=== PATIENT | female | born 1980 | race Caucasian/White ===

== ENCOUNTER 2016-12-02 17:29 | Emergency (ER) | payer MEDICAID, OTHER ==
[2016-12-02] MEDS ORDERED: ASPIRIN 81 MG TABLET, CHEWABLE PO ONE (17:52)
--- NOTE | 2016-12-02 17:54 | ER Document Report ---
ED Medical Screen (RME) - General Stated Complaint: BLOOD PRESSURE PROBLEM Notes: Patient states she has not been feeling well on an off for couple weeks. Chest pain started today about 1:00 and she was seen at an urgent care who called EMS. Her blood pressure was also elevated which is another reason why she went to the urgent care. Patient is having some shortness of breath. No fever. Nitroglycerin given for chest pain helped some but also gave her a headache. Patient has had a hysterectomy. I have greeted and performed a rapid initial assessment of this patient. A comprehensive ED assessment and evaluation of the patient, analysis of test results and completion of the medical decision making process will be conducted by additional ED providers. TRAVEL OUTSIDE OF THE [place] IN LAST 30 DAYS: No - Related Data Allergies/Adverse Reactions: hydrocodone bitartrate [From Vicodin] Allergy (Verified 12/02/16 17:49) Penicillins Allergy (Verified 12/02/16 17:49) Past Medical History GI Medical History: Reports: Hx Gastroesophageal Reflux Disease Past Surgical History: Reports: Hx Hysterectomy, Hx Orthopedic Surgery - rt ankle - Immunizations Hx Diphtheria, Pertussis, Tetanus Vaccination: Yes Physical Exam - Cardiovascular Rhythm: Regular Heart sounds: Normal auscultation
[2016-12-02 18:30] LABS: ABSOLUTE EOSINOPHILS # (AUTO) 0.2 10^3/uL (0.0-0.6); ABSOLUTE MONOCYTES (AUTO) 0.4 10^3/uL (0.1-1.4); ABSOLUTE NEUT (AUTO) 5.1 10^3/uL (1.7-8.2); BASOPHILS % (AUTO) 0.5 % (0-2); HEMATOCRIT 42.3 % (36.0-47.0); HEMOGLOBIN 14.5 g/dL (12.0-15.5); HGB HCT DIFFERENCE 1.2; LYMPHOCYTES % (AUTO) 26.3 % (13-45); MEAN CORPUSCULAR HEMOGLOBIN 31.3 pg (27.0-33.4); MEAN CORPUSCULAR HGB CONC 34.4 g/dL (32.0-36.0); MEAN CORPUSCULAR VOLUME 91 fl (80-97); MONOCYTES % (AUTO) 5.7 % (3-13); RED BLOOD COUNT 4.65 10^6/uL (3.72-5.28); RED CELL DISTRIBUTION WIDTH 13.3 % (11.5-14.0); SEGMENTED NEUTROPHILS % (AUTO) 65.5 % (42-78); WHITE BLOOD COUNT 7.7 10^3/uL (4.0-10.5)
[2016-12-02 18:38] LABS: PROTHROMBIN TIME 13.2 SEC (11.4-15.4)
[2016-12-02 18:51] LABS: BLOOD UREA NITROGEN 12 mg/dL (7-20); CALCIUM 8.8 mg/dL (8.4-10.2); CHLORIDE 104 mmol/L (98-107); CREATININE RESULT 0.88 mg/dL (0.52-1.25); GLUCOSE 85 mg/dL (75-110); POTASSIUM 4.2 mmol/L (3.6-5.0)
[2016-12-02 18:52] LABS: ALANINE AMINOTRANSFERASE 105 U/L (9-52); ALBUMIN 3.9 g/dL (3.5-5.0); ALKALINE PHOSPHATASE 78 U/L (38-126); ANION GAP 13 (5-19); ASPARTATE AMINO TRANSFERASE 77 U/L (14-36); BILIRUBIN,DIRECT 0.3 mg/dL (0.0-0.4); BILIRUBIN,TOTAL 0.5 mg/dL (0.2-1.3); CARBON DIOXIDE 25 mmol/L (22-30); CREATINE KINASE 164 U/L (30-135); LIPASE 157.1 U/L (23-300); MAGNESIUM 1.8 mg/dL (1.6-2.3); SODIUM 141.9 mmol/L (137-145); TOTAL PROTEIN 7.1 g/dL (6.3-8.2)
[2016-12-02 18:53] LABS: D-DIMER < 0.27 ug/mL (0.00-0.50)
[2016-12-02 19:16] LABS: CREATINE KINASE MB 1.75 ng/mL (<4.55); TROPONIN I < 0.012 ng/mL
[2016-12-02] MEDS ORDERED: KETOROLAC TROMETHAMINE INJ/PF 30 MG/1 ML SDV IV ONE (20:00)
--- NOTE | 2016-12-02 20:01 | ER Document Report ---
ED General - General Chief Complaint: Chest Pain Stated Complaint: BLOOD PRESSURE PROBLEM TRAVEL OUTSIDE OF THE [place] IN LAST 30 DAYS: No - HPI Patient complains to provider of: chest pain pressure elevated blood pressure Notes: Patient coming in for evaluation of chest pressure and elevated blood pressure. States that she was at her work and travel with a pressure in chest her blood pressure was taken was read as high patient was encouraged to go to local urgent care ongoing local urgent care had her vital signs retaken again Tylenol high therefore EMS was called patient's transport to the ER. Patient was given nitroglycerin by the EMS with no improvement of her pain. Patient states pain upon movement patient denies any fevers chills nausea vomiting. Patient states few days ago did have a few bouts of diarrhea. No recent travel. Patient is resting currently upon my evaluation. - Related Data Allergies/Adverse Reactions: hydrocodone bitartrate [From Vicodin] Allergy (Verified 12/02/16 17:49) Penicillins Allergy (Verified 12/02/16 17:49) Past Medical History - Social History Smoking Status: Never Smoker Chew tobacco use (# tins/day): No Frequency of alcohol use: Occasional Drug Abuse: None Family History: Reviewed & Not Pertinent Patient has suicidal ideation: No Patient has homicidal ideation: No Renal/ Medical History: Denies: Hx Peritoneal Dialysis GI Medical History: Reports: Hx Gastroesophageal Reflux Disease Past Surgical History: Reports: Hx Hysterectomy, Hx Orthopedic Surgery - rt ankle - Immunizations Hx Diphtheria, Pertussis, Tetanus Vaccination: Yes Review of Systems - Review of Systems Constitutional: No symptoms reported EENT: No symptoms reported Cardiovascular: Chest pain Respiratory: No symptoms reported Gastrointestinal: No symptoms reported Genitourinary: No symptoms reported Female Genitourinary: No symptoms reported Musculoskeletal: No symptoms reported Skin: No symptoms reported Hematologic/Lymphatic: No symptoms reported Neurological/Psychological: No symptoms reported -: Yes All other systems reviewed and negative Physical Exam - Vital signs Vitals: Resp Pulse Ox 12 99 12/02/16 18:17 12/02/16 18:17 Interpretation: Normal - General General appearance: Appears well, Alert - HEENT Head: Normocephalic, Atraumatic Eyes: Normal Pupils: PERRL - Respiratory Respiratory status: No respiratory distress Chest status: Tender - Tenderness to palpation of the chest reproduces patient' s pain Breath sounds: Normal Chest palpation: Normal - Cardiovascular Rhythm: Regular Heart sounds: Normal auscultation Murmur: No - Abdominal Inspection: Normal Distension: No distension Bowel sounds: Normal Tenderness: Nontender Organomegaly: No organomegaly - Back Back: Normal, Nontender - Extremities General upper extremity: Normal inspection, Nontender, Normal color, Normal ROM , Normal temperature General lower extremity: Normal inspection, Nontender, Normal color, Normal ROM , Normal temperature, Normal weight bearing. No: Bry's sign - Neurological Neuro grossly intact: Yes Cognition: Normal Orientation: AAOx4 Dianna Coma Scale Eye Opening: Spontaneous Dianna Coma Scale Verbal: Oriented Dianna Coma Scale Motor: Obeys Commands Crescent Coma Scale Total: 15 Speech: Normal Motor strength normal: LUE, RUE, LLE, RLE Sensory: Normal - Psychological Associated symptoms: Normal affect, Normal mood - Skin Skin Temperature: Warm Skin Moisture: Dry Skin Color: Normal Course - Re-evaluation Re-evalutation: 12/02/16 22:21 The patient has atypical chest pain as the patient's chest pain is not suggestive of pulmonary embolus, cardiac ischemia, aortic dissection, or other serious etiology. Given the extremely low risk of these diagnoses further testing and evaluation for these possibilities does not appear to be indicated at this time. The patient has been instructed to return if the symptoms worsen or change in any way. - Vital Signs Vital signs: Temp Pulse Resp BP Pulse Ox 98.4 F 18 111/68 97 12/02/16 20:38 12/02/16 20:38 12/02/16 20:38 12/02/16 20:38 - Laboratory Result Diagrams: 12/02/16 18:10 12/02/16 18:10 Laboratory results interpreted by me: 12/02/16 18:10 AST 77 H ALT 105 H Creatine Kinase 164 H Discharge - Discharge Clinical Impression: Chest pressure, Chest wall pain Condition: Good Disposition: HOME, SELF-CARE Instructions: Chest Wall Pain ([facility]), Chest Pain of Unclear Cause ([facility]) Additional Instructions: Your laboratory studies not show any critical etiology for your chest pressure today more likely you are experiencing some chest wall pain. His can be due to inflammation in the cartilage and chest wall muscles I would highly recommend taking Motrin for your pain. Also make sure that you drink plenty of water to stay hydrated. Return to the ER symptoms worsen. Follow-up with your primary care physician. Your blood pressure has been within normal limits here in the ER I recommend following up with your primary care physician for further monitoring Forms: Return to Work
[2016-12-02 20:42] VITALS: BP 111/68
--- NOTE | 2016-12-02 22:02 | EKG REPORT ---
SEVERITY:- BORDERLINE ECG - SINUS RHYTHM LVH BY VOLTAGE : Confirmed by: Doris Cotton 02-Dec-2016 22:01:54
== END 2016-12-02 20:54 | disposition home or self-care (01) ==
LOC: ER 17:29
DX: R07.9 Chest pain, unspecified (principal); R07.89 Other chest pain; I10 Essential (primary) hypertension
CPT/HCPCS: 93005; 99285; 96374; 36415; 82553; 82550; 83690; 83735; 85025; 85610; 80053; 84484; 85379; 71010; 93010; J1885

== ENCOUNTER 2017-02-05 23:25 | Emergency (ER) | payer MEDICAID ==
--- NOTE | 2017-02-06 02:21 | RADIOLOGY REPORT (SQ) ---
EXAM DESCRIPTION: FOOT LEFT COMPLETE COMPLETED DATE/TIME: 02/06/2017 2:08 am REASON FOR STUDY: left foot pain with hx fracture COMPARISON: CR left ankle 01/03/2015. NUMBER OF VIEWS: Three views. TECHNIQUE: AP, lateral and oblique radiographic images acquired of the left foot. LIMITATIONS: None. FINDINGS: MINERALIZATION: Normal. BONES: No acute fracture or dislocation. No worrisome bone lesions. Small calcaneal enthesophytes. JOINTS: No effusions. SOFT TISSUES: No soft tissue swelling. No foreign body. OTHER: Screw fixation of the distal tibia. 0.3 cm chronic avulsive fragment of the lateral malleolus suspected partially imaged. Mild ankle swelling. Left ankle findings partially imaged or consisten t with prior radiographs from January 2015. IMPRESSION: No acute findings of the foot. Chronic left ankle findings. TECHNICAL DOCUMENTATION: JOB ID: [id number] [employer]- All Rights Reserved
--- NOTE | 2017-02-06 05:11 | ER Document Report ---
HPI - HPI Patient complains to provider of: dorsal left foot pain Onset: Other - 1.5 weeks Onset/Duration: Gradual, Persistent Pain Level: 3 Context: 36-year-old female complaining of dorsal left foot pain for about a week and a half. She had to leave work early to get evaluated. She has a history of ankle injury and fracture. She is wondering if this is a tendinitis. There is no specific injury. Associated Symptoms: None Exacerbated by: Walking Relieved by: Denies Similar symptoms previously: Yes Recently seen / treated by doctor: No - ROS ROS below otherwise negative: Yes Systems Reviewed and Negative: Yes All other systems reviewed and negative - CARDIOVASCULAR Cardiovascular: DENIES: Chest pain Past Medical History - General Information source: Patient - Social History Smoking Status: Never Smoker Frequency of alcohol use: None Drug Abuse: None Lives with: Family Family History: Reviewed & Not Pertinent Renal/ Medical History: Denies: Hx Peritoneal Dialysis GI Medical History: Reports: Hx Gastroesophageal Reflux Disease Past Surgical History: Reports: Hx Hysterectomy, Hx Orthopedic Surgery - rt ankle - Immunizations Hx Diphtheria, Pertussis, Tetanus Vaccination: Yes Vertical Provider Document - CONSTITUTIONAL Agree With Documented VS: Yes Exam Limitations: No Limitations - INFECTION CONTROL TRAVEL OUTSIDE OF THE [place] IN LAST 30 DAYS: No - HEENT HEENT: Normocephalic - NECK Neck: Supple - RESPIRATORY O2 Sat by Pulse Oximetry: 98 - MUSCULOSKELETAL/EXTREMETIES Musculoskeletal/Extremeties: MAEW, FROM, Tender - Soft tissue dorsal left foot, no swelling, no ecchymosis, 2+ DP - NEURO Level of Consciousness: Awake, Alert - DERM Integumentary: Warm, Dry, No Rash Course - Re-evaluation Re-evalutation: 02/06/17 05:21 xray is negative, pt is ok going back to work tomorrow, will follow up with her md. - Vital Signs Vital signs: Temp Pulse Resp BP Pulse Ox 97.7 F 71 121/70 98 02/05/17 23:31 02/05/17 23:31 02/05/17 23:31 02/05/17 23:31 Discharge - Discharge Clinical Impression: dorsal left foot pain Condition: Good Disposition: HOME, SELF-CARE Instructions: Tendonitis ([facility]), Use of [id number]-[id number] Ibuprofen ([facility]), Acetaminophen Additional Instructions: see your doctor for follow up elevate and ice may help to er if wrose or new symptoms Forms: Return to Work
[2017-02-06 05:32] VITALS: BP 117/92
== END 2017-02-06 05:32 | disposition home or self-care (01) ==
LOC: ER 23:25
DX: M79.672 Pain in left foot (principal)
CPT/HCPCS: 99283